=== PATIENT | female | born 1955 | race Caucasian/White ===

== ENCOUNTER 2024-02-17 02:34 | Inpatient (IN) | payer MEDICARE, OTHER, SELFPAY ==
[2024-02-16 19:24] VITALS: BP 138/79
[2024-02-16 19:51] LABS: % Basophils 0.5 % (0-2); % Eosinophils 1.3 % (0-6); % Lymphocytes 22.9 % (20.5-51.1); % Monocytes 14.4 % (1.7-9.3); % Neutrophils 59.9 % (42.2-75.2); Absolute Basophils 0.1 10^3/uL (0-0.2); Absolute Eosinophils 0.2 10^3/uL (0-0.7); Absolute Immature Granulocytes 0.1 10^3/uL (0-0.05); Absolute Lymphocytes 2.9 10^3/uL (1.2-3.4); Absolute Monocytes 1.8 10^3/uL (0.1-0.6); Absolute Neutrophils 7.5 10^3/uL (1.4-6.5); Hematocrit 31.3 % (37.0-47.0); Hemoglobin 10.7 g/dL (12.0-16.0); Mean Corp Hgb Conc. 34.2 g/dL (33.0-37.0); Mean Corpuscular Hgb 27.2 pg (27.0-31.0); Mean Corpuscular Volume 79.6 fL (81.0-99.0); Mean Platelet Volume 10.7 fL (7.4-10.4); Nucleated Red Blood Cells % 0 %; Platelet Count 225 10^3/uL (130-400); Red Blood Cell Count 3.93 10^6/uL (4.20-5.40); Red Cell Dist. Width 13.4 % (11.5-14.5); White Blood Cell Count 12.5 10^3/uL (4.8-10.8)
[2024-02-16 20:07] LABS: AST (SGOT) 20 U/L (14-36); Albumin 4.4 g/dl (3.5-5.0); Alkaline Phosphatase 85 U/L (38-126); Blood Urea Nitrogen 30 mg/dl (7-17); Calcium 8.9 mg/dl (8.4-10.2); Carbon Dioxide 31 mmol/L (22-30); Chloride 82 mmol/L (98-107); Glucose 156 mg/dl (70-99); Potassium 4.7 mmol/L (3.5-5.1); Sodium 124 mmol/L (135-145); Total Bilirubin 0.3 mg/dl (0.2-1.3); Total Protein 7.5 g/dl (6.3-8.2); eGFR 40.73
[2024-02-16 20:15] LABS: ALT (SGPT) 19 U/L (0-35)
[2024-02-16 20:17] LABS: NT-proBNP 223 pg/ml; Troponin I < 0.012 ng/ml
[2024-02-16 22:00] VITALS: BP 118/96
--- NOTE | 2024-02-16 22:54 | ED.GENMED ---
History of Present Illness
General
Chief Complaint: Swelling
Source: patient
Exam Limitations: none
Time Seen by Provider: 02/16/24 22:31
History of Present Illness
History of Present Illness:
This is a 68 year old female that comes in with c/o left sided headache pain and bilateral leg swelling. States that she hasn't sleep well in 10 days due to this left sided headache pain. States that she then had gout in the right leg and it started
to hurt. States that her PCP gave her medication and it got better but then it moved to the left leg. Know both legs are swollen. States that she had this continued headache and she has been sitting up in a chair to sleep. States that she has had
some chest pain and nausea. Denies any fever, SOB, abd pain, vomiting, diarrhea, dizziness, urinary burning.
Past History
Past History
ED Past Medical History: HTN, Hypercholesterolemia and NIDDM
ED Past Surgical History: Appendectomy
Social History
Tobacco: Smoker
Alcohol: None
Personal:
Living: with family
Review of Systems
Review of Systems
All Other Systems: ROS reviewed and negative except as documented in HPI and ROS
Constitutional: Reports chills; Denies fever
EENT: Reports no symptoms
Respiratory: Denies cough or trouble breathing
Cardiac: Reports chest pain
ABD/GI: Reports nausea; Denies abdominal pain, vomiting or diarrhea
: Reports no symptoms; Denies dysuria, frequency or urgency
Musculoskeletal: Reports edema (Bilateral leg swelling)
Skin: Reports no symptoms
Neurological: Reports headache (Left sided headache); Denies dizzy
Psychiatric: Reports no symptoms
Phy Exam
General Physical Exam
General Presentation: no apparent distress
General age: appears stated age
General Skin: warm and dry
General Habitus: elderly
General Mental: alert
General Hydration: appears well hydrated
ENT Exam
ENT Exam: TM's normal, pharynx normal and neck supple
Eye Exam
Eye Exam: EOMI
Cardiovascular Exam
Cardiovascular Exam: regular rate/rhythm, no murmur and normal peripheral pulses
Pulmonary Exam
Pulmonary Exam: lungs clear, no respiratory distress, no rales, chest non tender, no crackles, no rhonchi, no wheezing and no cough
Gastrointestinal Exam
Gastrointestinal Exam: normal bowel sounds, non tender, soft, no organomegaly, no pulsatile mass and non distended
Musculoskeletal Exam
Musculoskeletal Exam: full ROM and edema (Bilateral lower leg swelling +1 pitting edema. )
Skin Exam
Skin Exam: normal color, warm/dry, no rash and no petechia
Psychiatric Exam
Psychiatric Exam: normal mood/affect
Scores
Heart Failure Risk
Heart Failure Risk Score: Not Applicable
Course
Orders/Labs/Results
Orders:
Orders
02/16/24 19:25
Electrocardiogram (*1) Urgent
Reason for Study: Chest Pain
EKG- Treatment ONCE
02/16/24 19:44
BNP [NT-proBNP] Urgent
Complete Blood Count/With Diff Urgent
Comprehensive Metabolic Panel Urgent
Troponin I Urgent
02/16/24 22:45
CR Chest - 2 Views Urgent
Comment:
Reason For Exam: Chest pain
US Legs, Bilateral [US Periph Venous LOWER Ext Ignacio] Urgent
Comment:
Reason For Exam: Bilateral leg swelling
02/16/24 23:02
Acetaminophen [Tylenol] 1,000 mg PO NOW STA
02/16/24 23:03
CT Head W/o Iv Contrast Urgent
Comment:
Reason For Exam: Left sided headache
Ondansetron Injectable [Zofran] 4 mg IV NOW STA
02/17/24 01:13
Osmolality, Random Urine Urgent
Date Specimen was Collected: 02/17/24
Time Specimen was Collected: 01:07
Urinalysis Reflex To Culture Urgent
Date Specimen was Collected: 02/17/24
Time Specimen was Collected: :07
Urine Sodium Urgent
Date Specimen was Collected: 02/17/24
Time Specimen was Collected: :07
02/17/24 02:14
Admit/Transfer Patient As Directed
Co-Sign Provider:
Level of Care: Inpatient admission
Assign to:: Telemetry
Physician / Group: hospitalist
Diagnosis: hyponatremia
Reason for Telemetry: Subacute Heart Failure
Date to Stop Telemetry: 02/19/24
Time to Stop Telemetry: 11:00
Reason for Hospitalization: hyponatremia
Expected length of stay greater than two midnights?: Yes
ELOS- Estimated Length of Stay in days: 2
I certify the patient meets the requirements for IP care: Yes
PRN Pain Medication Management As Directed
May give lesser potent ordered pain med per pt: Yes
preference::
Protocol:: Medication orders for pain may be administered in a
manner that supports deferring to patient preference
when the pt is:
- Requesting an ordered lesser potent pain medication.
Least to most potent pain medications are defined
as: acetaminophen < NSAID < tramadol < opioids
(morphine, oxycodone, hydromorphone).
- Requesting a lesser dose of the same medication IF
ORDERED.
- Requesting a less intrusive route of administration
if both routes are prescribed by the provider (PO <
IV).
02/17/24 02:15
Code Status As Directed
Resuscitation Status: Full Code
02/17/24 02:43
Acetaminophen [Tylenol] 650 mg PO Q4HPRN PRN
Bisacodyl [Dulcolax] 10 mg RECTAL [id number] PRN
Clonidine [Catapres] 1 mg PO DAILYPRN PRN
Docusate W/Senna [Senokot-S] 1 tablet PO BIDPRN PRN
Ondansetron Injectable [Zofran] 4 mg IV Q6HPRN PRN
Polyethylene Glycol Powder [Miralax] 17 grams PO DAILYPRN PRN
02/17/24 02:43
Consult Notification Routine
Specialty to Notify: Nephrology
NEPHROLOGY CONSULT Routine
Consulting Provider: Aden Dias
Was physician already notified: No
Reason for consult: hyponatremia, Na 124.
Activity As Directed
Activity Level: With Assistance
Bedside Glucose Monitoring As Directed
Frequency: AC&HS
Vital Signs As Directed
Frequency: Per unit guidelines
DX Deep Vein Thrombosis Video Routine
02/17/24 Breakfast
1800 calorie (15 carb) Diabetic
Fluid Restriction: 1200 mL/day (40 oz)
Basic Metabolic Panel IN AM
Cortisol, Random IN AM
Magnesium IN AM
TSH Reflex To Free T4 IN AM
02/17/24 07:30
Insulin Aspart Corrective Low [Novolog Flexpen-Low Resistance] See Protocol SC AC
02/17/24 08:00
Carvedilol [Coreg] 25 mg PO BID
Heparin 5,000 units SC Q8
02/17/24 08:17
Orthostatic Vital Signs As Directed
Orthostatic VS Frequency: Now
02/17/24 18:00
Metformin Extended Release [Glucophage Xr Extended Release] 1,000 mg PO QPM
02/19/24 11:00
DC Protocol for Telemetry ONCE
Abnormal Lab Results
02/16/24
19:44
WBC 12.5 H 10^3/uL
(4.8-10.8)
RBC 3.93 L 10^6/uL
(4.20-5.40)
Hgb 10.7 L g/dL
(12.0-16.0)
Hct 31.3 L %
(37.0-47.0)
MCV 79.6 L fL
(81.0-99.0)
MPV 10.7 H fL
(7.4-10.4)
Abs Immat Gran (auto) 0.1 H 10^3/uL
(0-0.05)
Absolute Neuts (auto) 7.5 H 10^3/uL
(1.4-6.5)
Absolute Monos (auto) 1.8 H 10^3/uL
(0.1-0.6)
Immature Gran % 1.0 H %
(0-0.5)
Monocytes % 14.4 H %
(1.7-9.3)
Sodium 124 L mmol/L
(135-145)
Chloride 82 L mmol/L
(98-107)
Carbon Dioxide 31 H mmol/L
(22-30)
BUN 30 H mg/dl
(7-17)
Creatinine 1.4 H mg/dL
(0.6-1.0)
Glucose 156 H mg/dl
(70-99)
02/16/24 19:44
02/16/24 19:44
Leukocytosis, H/H slightly low, Hyponatremia, Chloride low. Carbon dioxide. Chronic renal renal insufficiency, Hyperglycemia. Troponin <0.012, Pro-BNP 223
Vital Signs
Initial and Last Documented VS:
Initial Vital Signs
Temp Pulse Resp BP Pulse Ox
98.9 F 94 16 138/79 97
02/16/24 19:24 02/16/24 19:24 02/16/24 19:24 02/16/24 19:24 02/16/24 19:24
Last Documented Vital Signs
Temp Pulse Resp BP Pulse Ox
98.2 F 87 16 127/72 91
02/16/24 23:58 02/16/24 23:58 02/16/24 22:30 02/16/24 23:58 02/17/24 01:00
MDM/Problems Addressed
Differential Diagnosis Includes:
Leg edema,
MDM/Problems Addressed:
This is a 68 year old female that comes in with c/o bilateral leg swelling, left sided headache pain. States that she has not been able to sleep for the past 10 days. State that she has this leg pain, pain in her legs.
Will get labs, CT head, Ultrasound legs,
Back into see patient. Explained that her US is negative for any blood clot and her CT of the head is normal. Spoke with Dr. Dias will give 3% and put Nephrology on Consult. Will admit. Hospitalist notified.
Chronic conditions affecting care: DM
Acute Exacerbation and/or Progression of Chronic Illness:
NA
*Radiology
Radiology exam reviewed: preliminary read by ED provider (Chest-Negative for active disease), radiology read reviewed (CT head0- No acute hemorrhage, herniation, or hydrocephalus. NO calvarial fracture. The visualized peranasal sinuses and mastoid
air cells are clear. ) and other (US- negative for DVT)
*EKG
Interpreted by ED Provider?: Yes
Heart Rate: 111
Rate: tachycardiac
Rhythm: sinus
[place]: normal axis
Interval: normal interval
QRS Pattern: normal QRS
Ischemia: no ischemia
*[employer] Interpretation
Rate: normal
Heart Rate: 88
Rhythm: sinus
*Critical Care Note
Total Time (30-74mins, 75-104mins- exclusive of procedures): Not Applicable
ED Attending Note
-
Portions of this chart may have been created with voice recognition software.� Occasional wrong word or��sound alike� substitutions may have occurred due to the inherent limitations of voice recognition software.
Discharge Plan
Departure
Patient Disposition: Admit
Date of Disposition: 02/17/24
Time of Disposition: 00:06
Admit to: Telemetry
Presentation/result/management discussed w/ accepting MD/DO: Hospitalist
Patient with high blood pressure during this ER visit?: No
Condition: Good
Covid-19: Not Applicable
Discharge Problem:
Acute hyponatremia, Bilateral edema of lower extremity, Headache
Interventions
Interventions:
*Risk Screen - Suicide Last Done: 02/16/24 19:24
*General Assessment Last Done: 02/16/24 19:24
*Neglect/Abuse Screening Last Done: 02/16/24 19:24
ED- Fall Risk Assessment Last Done: 02/16/24 21:49
*ED COVID-19 Vaccine History Last Done: 02/16/24 19:24
ED- Cardiac Assessment Last Done: 02/16/24 21:49
ED- Pulmonary Assessment Last Done: 02/16/24 21:49
ED-Skin Assessment Last Done: 02/16/24 21:49
[2024-02-16 23:55] VITALS: BP 127/72
[2024-02-16 23:58] VITALS: BP 127/72
[2024-02-17] VITALS (9 sets, daily range): BP systolic 98–131; BP diastolic 49–79; PULSE 81–85; BMI 40.2
[2024-02-17] MEDS: TYLENOL 1000 MG PO (00:04)
[2024-02-17] MEDS: ZOFRAN 4 MG IV (00:05)
[2024-02-17 01:24] LABS: Urine Albumin Negative (Neg - Trace); Urine Bilirubin Negative (Negative); Urine Character Clear (Clear); Urine Color Yellow; Urine Glucose Negative (Negative); Urine Ketone Negative (Negative); Urine Leukocyte Negative (Negative); Urine Nitrite Negative (Negative); Urine Occult Blood Negative (Negative); Urine Urobilinogen Negative (Neg - 1+)
--- NOTE | 2024-02-17 01:39 | HPS.HSE ---
Family Physician
-
Family Physician: Sebastien Gonzalez
Chief Complaint
-
Leg swelling
History of Present Illness
This is a 68-year-old female was past medical history significant for gout, hypertension and a headache presents to the emergency department with the lower extremity swelling and was found to be hyponatremic.
The patient reported that she started having headache symptoms about 8 days ago. Right before Michael she reported a left-sided sinus congestion and a headache. She reported that she has had prior episode of before and she was thought to have
sinusitis and treated with an antibiotic which resulted in the rash. This time there is some thought that she may be having a trigeminal or myofascial pain headache. Patient reported the headache is present preventing her from sleeping so she
started taking carbamazepine prescribed by physician. She also had recent episode of a gout flare. She was started on colchicine with transient/fluctuating kidney function. After resolution of the ankle pain she is she now had swelling. Due to
the swelling, mild elevated potassium the patient was started on Lasix. Hydrochlorothiazide and lisinopril were held. She otherwise denies any fevers or chills. She denies any prior history of hyponatremia. She denies any significant changes in
p.o. intake. She denies dizziness or lightheadedness.
In the emergency department she was afebrile, blood pressure was 117/70 with a pulse of 82. ECG shows sinus tachycardia at 11 with a few PVCs. CT of the head was negative for any acute intracranial process. She had a mild leukocytosis of 12.5
with stable hemoglobin and platelet counts. Sodium was 124, potassium 4.7, bicarb 31, BUN 30 and creatinine 1.4. Baseline creatinine was around 1 the beginning of the year and as high as 1.9 last month. Glucose was 156. Troponin was negative.
BNP was negative. She had a ultrasound of lower extremities which are pending at this time.
Medical History
Past Medical History
Past Medical History: Reports HTN
Additional Past Medical History:
Gout
Past Surgical History: Reports Other
Social History
Tobacco: Non-smoker
Alcohol: None
Drug: None
Living: With Family
Employment: Retired
Family History
Family History: Not pertinent
Allergies / Home Medications
Allergies reflects when Allergies were last updated in [employer]
Home Medications with original date entered in [employer]
Allergy/Medication List:
Allergies
Allergy/AdvReac Type Severity Reaction Status Date / Time
doxycycline Allergy Rash Verified 02/16/24 23:57
Penicillins Allergy Unknown Verified 02/16/24 19:30
Home Medications
carbamazepine 200 mg tablet,extended release,12 hr 200 mg PO HS 02/16/24
carvedilol 25 mg tablet 25 mg PO BID 02/16/24
clonidine HCl 0.1 mg tablet 1 mg PO DAILYPRN PRN BP<155/90 02/16/24
colchicine 0.6 mg tablet 0.6 mg PO TIDPRN PRN gout 02/16/24
doxazosin 1 mg tablet 1 mg PO QPM 02/16/24
furosemide 40 mg tablet 40 mg PO DAILY 02/16/24
ibuprofen 600 mg tablet 600 mg PO TID 02/16/24
lisinopril 20 mg-hydrochlorothiazide 25 mg tablet 1 tab PO DAILY 02/16/24
metformin 500 mg tablet,extended release 24 hr 1,000 mg PO QPM 02/16/24
potassium chloride 20 mEq tablet,extended release 20 meq PO DAILY 02/16/24
Review of Systems
-
Constitutional: Reports Sleep Disturbance
Respiratory: Reports No Symptoms
Cardiac: Reports No Symptoms
Abdomen/GI: Reports No Symptoms
: Reports No Symptoms
Musculoskeletal: Reports Edema
Skin: Reports No Symptoms
Neurological: Reports Headache and Numbness
Endocrine: Reports No Symptoms
Hematologic/Lymphatic: Reports No Symptoms
Psych: Reports No Symptoms
Physical Exam
Vital Signs
Vital Signs
Temp Pulse Resp BP Pulse Ox
98.2 F 87 16 127/72 94
02/16/24 23:58 02/16/24 23:58 02/16/24 22:30 02/16/24 23:58 02/16/24 23:58
Physical Exam
General: Well Developed, Well Nourished and No Apparent Distress
HEENT: NormoCephalic, Anicteric, Moist mucous membranes, Atraumatic and PERRLA
Respiratory: Clear
Cardiac: S1/S2 and Regular Rhythm
GI: Soft, Non Tender, Non Distended and Normal Bowel Sounds
Rectal: Deferred by Provider
Genito-urinary: Deferred by me
Musculoskeletal: No Clubbing, No Cyanosis, Edema, Left Lower Extremity (1+ ankle) and Edema, Right Lower Extremity (1+ ankle)
Skin: Warm
Neuro: AO x 3
Hematologic/Lymphatic: No Lymphadenopathy
Psych: Calm
Laboratory Results
-
02/16/24 19:44
02/16/24 19:44
Laboratory Results
Total Bilirubin 0.3 mg/dl (0.2-1.3) 02/16/24 19:44
AST 20 U/L (14-36) 02/16/24 19:44
ALT 19 U/L (0-35) 02/16/24 19:44
Alkaline Phosphatase 85 U/L (38-126) 02/16/24 19:44
Troponin I < 0.012 ng/ml 02/16/24 19:44
Data Reviewed
-
CT Scan: Report Reviewed by me
Ultrasound: Report Reviewed by me
Medical Tests (Nuc Med, Echo, EKG etc): Image Personally Visualized and interpreted
Lab Data: Labs Reviewed by me
Old Records: Reviewed
Impression/Plan
-
IMPRESSION:
Patient with h/o HTN and CKD and gout presents to ED ostensibly for headache and lower extremity swelling and found to have severe hyponatremia. She appears asymptomatic from that.
PLAN:
1. Hyponatremia - Euvolemic to hypervolemic hyponatremia Urine Na and Osm are pending. Suspect SIADH and possibly diuretic induced as well. Recent initiation of carbamezabine Feb 05, by feb 09 sodium was 131 now 124. She also has been taking
furosemide for ankle edema after her gout exacerbation.
- admit to telemetry
- hold carbamazepine and lasix for now
- start hypertonic saline 3% at 20ml/hr
- check tsh and am cortisol
- check orthostatics in am
- bnp normal, uriel LE u/s negative, check echo and lfts
- nephrology consult
2. CKD - Recent rise in creatinine to 1.9. Lisinopril/hctz held at that time. Cr now 1.4.
- continue to hold lisinopril for now
- hold colchicine and nsaids
HTN
- continue doxazosin and carvedilol
DM II
- metformin 1g q pm for now
DVT PPX - heparin sq
Code status - full code
[2024-02-17 01:44] LABS: Urine Sodium 55 mmol/L (30-90)
[2024-02-17] MEDS: SODIUM CHLORIDE 3% 250 IV ×2 (04:45→21:17)
[2024-02-17 07:12] LABS: Blood Urea Nitrogen 30 mg/dl (7-17); Calcium 8.3 mg/dl (8.4-10.2); Carbon Dioxide 30 mmol/L (22-30); Chloride 84 mmol/L (98-107); Glucose 121 mg/dl (70-99); Magnesium 1.7 mg/dl (1.6-2.3); Potassium 4.9 mmol/L (3.5-5.1); Sodium 124 mmol/L (135-145)
[2024-02-17 07:36] LABS: Cortisol, Random 6.3 ug/dl; TSH Reflex To Free T4 1.09 uIU/ml (0.47-4.68)
[2024-02-17 08:11] LABS: Osmolality Urine 276 mOsm/kg (300-900)
[2024-02-17] MEDS: TYLENOL 650 MG PO ×2 (08:30→21:25)
[2024-02-17] MEDS: HEPARIN 5000 UNITS SC ×3 (09:13→23:10)
[2024-02-17] MEDS: COREG 25 MG PO ×2 (09:15→19:32)
[2024-02-17 09:23] LABS: Glucose - Point of Care 158 mg/dl (70-99)
--- NOTE | 2024-02-17 09:33 | EDRN ---
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
--- NOTE | 2024-02-17 10:00 | EDRN ---
Pt medicated w/ tylenol 650 mg for L face pain 7/10 and pain now 2/10.
[2024-02-17 10:02] LABS: Iron 80 ug/dl (37-170)
[2024-02-17 10:11] LABS: Percent Saturation 26 % (20-50); Total Iron Binding Capacity 302 ug/dl (265-497)
[2024-02-17] MEDS: NOVOLOG FLEXPEN-LOW RESISTANCE SC ×2 (10:45→18:35)
--- NOTE | 2024-02-17 10:45 | W.CON.NEPH ---
Consultation
-
Date/Time Consultation Requested: 02/17/24 0243
Date/Time Consultation Performed: 02/17/24 1100
Requesting Provider: Srinivas Ahmadi MD
Performing Provider: Jewels De Luna
Reason for Consultation: Hyponatremia, KALLIE
Medical History
-
Chief Complaint: leg edema
History of Present Illness:
68-year-old female was past medical history significant for gout when necessary colchicine, hypertension Carvedilol, hydrochlorothiazide, lisinopril, when necessary clonidine and a headache presents to the emergency department with the lower
extremity swelling and was found to be hyponatremic 124.
The patient reported that she started having headache symptoms about 8 days ago. Right before Michael she reported a left-sided sinus congestion and a headache. She reported that she has had prior episode of before and she was thought to have
sinusitis and treated with an antibiotic which resulted in the rash. This time there is some thought that she may be having a trigeminal or myofascial pain headache. Patient reported the headache is present preventing her from sleeping so she
started taking carbamazepine prescribed by physician. She also had recent episode of a gout flare On the same time. She was started on colchicine. After resolution of the ankle pain she is she now had Leg swelling. Due to the swelling, mild
elevated potassium the patient was started on Lasix off Hydrochlorothiazide and lisinopril. Reportedly her baseline creatinine is around 1.3 since June 2023, on 02/10/24 creatinine was at 1.9, uric acid was 11.2. She otherwise denies any fevers or
chills. She denies any prior history of hyponatremia. She denies any significant changes in p.o. intake. She denies dizziness or lightheadedness.
labs in the ER showed Sodium 124, potassium 4.7, bicarb 31, BUN 30 and creatinine 1.4. BNP was negative. She had a ultrasound of lower extremities negative for DVT. She started on 3% saline overnight and repeat labs this morning still at 124,
nephrology is consulted to evaluate further.
Past Medical History
HTN
NIDM
Gout
CKD
HLD
PAD-carotid art disease
Social History
Tobacco: Non-Smoker
Alcohol: None
Drug: None
Living: With Family
Family History
Family History: Not Pertinent
Allergies / Home Medications
Allergy/AdvReac Type Severity Reaction Status Date / Time
doxycycline Allergy Rash Verified 02/16/24 23:57
Penicillins Allergy Unknown Verified 02/16/24 19:30
�Medication �Instructions �Recorded �Confirmed �Type
carbamazepine 200 mg 200 mg PO HS 02/16/24 02/16/24 History
tablet,extended release,12 hr
carvedilol 25 mg tablet 25 mg PO BID 02/16/24 02/16/24 History
clonidine HCl 0.1 mg tablet 1 mg PO DAILYPRN PRN BP<155/90 02/16/24 02/16/24 History
colchicine 0.6 mg tablet 0.6 mg PO TIDPRN PRN gout 02/16/24 02/16/24 History
doxazosin 1 mg tablet 1 mg PO QPM 02/16/24 02/16/24 History
furosemide 40 mg tablet 40 mg PO DAILY 02/16/24 02/16/24 History
ibuprofen 600 mg tablet 600 mg PO TID 02/16/24 02/16/24 History
lisinopril 20 1 tab PO DAILY 02/16/24 02/16/24 History
mg-hydrochlorothiazide 25 mg tablet
metformin 500 mg tablet,extended 1,000 mg PO QPM 02/16/24 02/16/24 History
release 24 hr
potassium chloride 20 mEq 20 meq PO DAILY 02/16/24 02/16/24 History
tablet,extended release
Review of Systems
-
All complete 12 point review of system have been inquired and found negative other than stated in HPI
All other systems: Negative unless noted
Physical Exam
Vital Signs
Vital Signs
Temp Pulse Resp BP Pulse Ox
98.3 F 84 16 121/63 88
02/17/24 07:53 02/17/24 09:30 02/17/24 09:30 02/17/24 09:15 02/17/24 09:30
Lab Results
WBC 12.5 10^3/uL (4.8-10.8) H 02/16/24 19:44
RBC 3.93 10^6/uL (4.20-5.40) L 02/16/24 19:44
Hgb 10.7 g/dL (12.0-16.0) L 02/16/24 19:44
Hct 31.3 % (37.0-47.0) L 02/16/24 19:44
Plt Count 225 10^3/uL (130-400) 02/16/24 19:44
Sodium 124 mmol/L (135-145) L 02/17/24 06:28
Potassium 4.9 mmol/L (3.5-5.1) 02/17/24 06:28
Chloride 84 mmol/L (98-107) L 02/17/24 06:28
Carbon Dioxide 30 mmol/L (22-30) 02/17/24 06:28
BUN 30 mg/dl (7-17) H 02/17/24 06:28
Creatinine 1.6 mg/dL (0.6-1.0) H 02/17/24 06:28
eGFR 34.70 02/17/24 06:28
Glucose 121 mg/dl (70-99) H 02/17/24 06:28
Calcium 8.3 mg/dl (8.4-10.2) L 02/17/24 06:28
Sjn-T-Zoyvzlhxzuc Pept 223 pg/ml 02/16/24 19:44
Albumin 4.4 g/dl (3.5-5.0) 02/16/24 19:44
CXR:
IMPRESSION:
No acute cardiopulmonary abnormality.
Physical Exam
General: Awake, Alert, Oriented, AOx3, No Distress and Nontoxic
HEENT: EOMI, Anicteric, Conjunctivae Clear and Facial Symmetry
Respiratory: Clear, Normal Excursion and Nonlabored Respirations
Cardiac: S1/S2 and Regular Rate/Rhythm
Abdomen: Soft, Nontender and Nondistended
Musculoskeletal: No Cyanosis and Edema (1+)
Neuro: Nonfocal/Grossly Intact
Psych: Mood/afflect pleasant, Insight/judgement good and Appropriate
Data Reviewed
-
Labs: Labs Reviewed by me and Discussed with Patient
Assessment/Plan
-
IMP:
Hyponatremia
KALLIE with CKD -baseline 1.3 Recent rise in creatinine to 1.9.
HTN
DM II
Gout
HLD
Plan:
A/w leg edema, BNP low and no DVT , recent gout
sodium no change with 3%, U osmo 276, U na 55-was on HCTZ, recent initiation of carbamazepine, +/- NSAIDs
TSH, cortisol were ok
follow repeat labs, if still low try samsca
likely need lasix to maintain and FR
no HCTZ in future
CKD-baseline cr 1.3, currently at 1.6
UA bland, check renal US to complete w/u
no w/nu for CKD in the past per pt
BP stable
Gout-may need Allopurinol once stabilized
d/w pt
[2024-02-17 10:56] LABS: Vitamin B12 255 pg/ml (239-931)
--- NOTE | 2024-02-17 11:11 | EDRN ---
Dr. Valle TT'd that pt stated to this RN that she will not be taking any insulin.
[2024-02-17 11:50] LABS: Erythrocyte Sed Rate 44 mm/hour (0-20)
--- NOTE | 2024-02-17 12:00 | EDRN ---
Dr. Valle in to see pt. Pt ordered lunch tray.
--- NOTE | 2024-02-17 12:30 | EDRN ---
Report called to Sly JEFFERSON in 1 Acute for bed 1143 at this time.
--- NOTE | 2024-02-17 13:34 | EDRN ---
Pt went to room 1143 w/ her diet tray.
[2024-02-17 14:00] LABS: Glucose - Point of Care 159 mg/dl (70-99)
[2024-02-17] MEDS: NOVOLOG FLEXPEN-LOW RESISTANCE 1 UNITS SC (14:03)
[2024-02-17] MEDS: MAGNESIUM OXIDE 500 MG PO (14:05)
[2024-02-17] MEDS: VITAMIN C 500 MG PO (14:05)
--- NOTE | 2024-02-17 14:07 | W.PN.HOSP.TC ---
Today's Communication/Plan
-
ECHO
Correct sodium
Assessment / Plan
Assessment / Plan
68-year-old female with leg swelling.
Patient is a vague historian. Looks like she had lower extremity edema for the past 3 weeks. She also developed a gout attack for which she was treated with colchicine which made her creatinine go up and stopped. She has also been taking
ibuprofen regularly as outpatient for the pain. She also had left-sided headache for which she was prescribed carbamazepine sounds like got her headache better but she did not take it last night. She thinks she has chronic kidney disease
Ultrasound-no DVT
Chest s-asm-[id number]
CVS: S1-S2 normal
Chest: CTA B/L
Abdomen: Soft, NT / Bowel sounds present
Extremities: B/L edema
[employer]: Non focal exam
# Hyponatremia
Possible medication induced. Hold carbamazepine
Started on 3% saline
Follow BMP
Normal TSH and cortisol
# Lower extremity edema-check echo
No DVT on ultrasound
# Recent headaches for which she was started on carbamazepine. Hold now because of the sodium
# Kidney injury-likely has CKD creatinine was 1.311 2724. 1.98 on 02/15/2024
Hold lisinopril hydrochlorothiazide, colchicine and NSAIDs
Urine analysis without any albuminuria
Check bladder scan rule out retention
Nephrology has been consulted
She has been taking ibuprofen regularly. Advised to stop.
Follow creatinine
# Hypertension-continue doxazosin 1 mg every afternoon and carvedilol 25 Mg twice daily.
She was also on clonidine as needed as outpatient
Hold lisinopril hydrochlorothiazide
# Ghpqllie-Gqcm-Jsigo and sliding scale coverage. Continue metformin. If creatinine rises we may need to stop.
# Gout. Recent uric acid level was 11.2
# Anemia-normal iron studies. Replace low normal B12
# Vitamin D deficiency-replace
# History of scurvy-therefore on vitamin C maintenance as outpatient
# DVT prophylaxis-subcutaneous heparin
# Full code
Discussed with patient's daughter from Son's cell phone at bed side.
Discussed with son at bedside
Old labs with pt reviewed.
Anticipated Discharge: 24 - 48 hours
Subjective/Interval History
-
Date of Service: February 17, 2024
Objective Data
-
Labs:
Laboratory Results
02/17/24
06:28
Sodium 124 L
Potassium 4.9
Chloride 84 L
Carbon Dioxide 30
BUN 30 H
Creatinine 1.6 H
Glucose 121 H
Calcium 8.3 L
Vital Signs:
Vital Signs
Temp Pulse Resp BP Pulse Ox
98.3 F 79 20 103/58 94
02/17/24 07:53 02/17/24 13:15 02/17/24 13:15 02/17/24 12:02 02/17/24 13:15
[2024-02-17] MEDS: DRISDOL (VITAMIN D2) 50000 UNITS PO (14:34)
[2024-02-17 16:34] LABS: Sodium 126 mmol/L (135-145)
[2024-02-17] MEDS: GLUCOPHAGE XR EXTENDED RELEASE 1000 MG PO (18:35)
[2024-02-17 18:46] LABS: Glucose - Point of Care 142 mg/dl (70-99)
[2024-02-17 21:41] LABS: Glucose - Point of Care 128 mg/dl (70-99)
[2024-02-18] VITALS (7 sets, daily range): BP systolic 96–141; BP diastolic 53–72; PULSE 81; O2SAT 96; BMI 39.9
[2024-02-18 07:50] LABS: Blood Urea Nitrogen 27 mg/dl (7-17); Carbon Dioxide 32 mmol/L (22-30); Chloride 91 mmol/L (98-107); Estimated Creatinine Clearance 45 ml/min; Glucose 108 mg/dl (70-99); Potassium 4.8 mmol/L (3.5-5.1); Sodium 129 mmol/L (135-145); eGFR 44.51
[2024-02-18] MEDS: VITAMIN C 500 MG PO (09:35)
[2024-02-18] MEDS: MAGNESIUM OXIDE PO ×2 (09:35→10:34)
[2024-02-18] MEDS: VITAMIN D3 (cholecalciferol) 50 MCG PO (09:35)
[2024-02-18] MEDS: COREG 25 MG PO ×2 (09:35→20:30)
[2024-02-18] MEDS: NOVOLOG FLEXPEN-LOW RESISTANCE SC ×2 (09:40→17:10)
[2024-02-18] MEDS: HEPARIN 5000 UNITS SC ×3 (09:40→23:03)
[2024-02-18 09:50] LABS: Glucose - Point of Care 138 mg/dl (70-99)
--- NOTE | 2024-02-18 11:55 | W.PN.NEPH.PH ---
Today's Communication / Plan
-
FR, lasix 20mg daily
Assessment/Plan
-
IMP:
Hyponatremia
KALLIE with CKD -baseline 1.3 Recent rise in creatinine to 1.9.
HTN
DM II
Gout
HLD
Plan:
A/w leg edema, BNP low and no DVT , recent gout
sodium improved to 129 s/p 3%,
U osmo 276, U na 55-was on HCTZ, recent initiation of carbamazepine, +/- NSAIDs
TSH, cortisol were ok
given edema will start lasix and maintain FR, echo normal EF, mild LVH, mild TR
no HCTZ in future
monitor mild met alkalosis
CKD-currently at baseline cr 1.3,
UA bland, MED changes on renal US, incidental note of fatty liver
BP stable
Gout-may need Allopurinol once stabilized
d/w pt
-
-
Date of Service: February 18, 2024
CC / HPI / ROS
-
Chief Complaint:
KALLIE, hypoantremia
History of Present Illness:
sodium better at 129, cr down to 1.3
k normal
BP stable
Review of Systems:
no cp or sob
c/o LE edema
Labs
-
Labs:
WBC 12.5 10^3/uL (4.8-10.8) H 02/16/24 19:44
RBC 3.93 10^6/uL (4.20-5.40) L 02/16/24 19:44
Hgb 10.7 g/dL (12.0-16.0) L 02/16/24 19:44
Hct 31.3 % (37.0-47.0) L 02/16/24 19:44
Plt Count 225 10^3/uL (130-400) 02/16/24 19:44
Sodium 129 mmol/L (135-145) L 02/18/24 06:46
Potassium 4.8 mmol/L (3.5-5.1) 02/18/24 06:46
Chloride 91 mmol/L (98-107) L 02/18/24 06:46
Carbon Dioxide 32 mmol/L (22-30) H 02/18/24 06:46
BUN 27 mg/dl (7-17) H 02/18/24 06:46
Creatinine 1.3 mg/dL (0.6-1.0) H 02/18/24 06:46
eGFR 44.51 02/18/24 06:46
Glucose 108 mg/dl (70-99) H 02/18/24 06:46
Calcium 8.0 mg/dl (8.4-10.2) L 02/18/24 06:46
Ups-R-Bvseaehotfu Pept 223 pg/ml 02/16/24 19:44
Albumin 4.4 g/dl (3.5-5.0) 02/16/24 19:44
Physical Exam
-
Vital Signs:
Vital Signs
Temp Pulse Resp BP Pulse Ox
97.7 F 79 18 123/68 98
02/18/24 07:00 02/18/24 07:00 02/18/24 07:00 02/18/24 07:00 02/18/24 07:00
Cardiovascular:: Regular rate and rhythm
Respiratory:: Bilateral: CTA
Lung Excursion:: Normal
Abdomen:: Nontender and Soft
Extremity Edema:: +1: Bilateral:
Galindo Catheter: No
--- NOTE | 2024-02-18 12:21 | W.PN.HOSP.TC ---
Today's Communication/Plan
-
Sodium slowly coming up
Hold further Lasix as blood pressure is low
Check CT abdomen pelvis with p.o. contrast
Benadryl ordered as patient stated that she had a stress test and had some allergic reaction (which would not be Omnipaque)
Assessment / Plan
Assessment / Plan
68-year-old female with leg swelling.
Patient is a vague historian. Looks like she had lower extremity edema for the past 3 weeks. She also developed a gout attack for which she was treated with colchicine which made her creatinine go up and stopped. She has also been taking
ibuprofen regularly as outpatient for the pain. She also had left-sided headache for which she was prescribed carbamazepine sounds like got her headache better but she did not take it last night. She thinks she has chronic kidney disease
Ultrasound-no DVT
Chest [id number]-[id number]
CVS: S1-S2 normal
Chest: CTA B/L
Abdomen: Soft, NT / Bowel sounds present
Extremities: B/L edema-slightly better
RN ADVICE: Non focal exam
# Hyponatremia
Possible medication induced. Hold carbamazepine
Started on 3% saline
hold Lasix as blood pressure is on the low side and she is feeling dizzy
Follow BMP-sodium better
Normal TSH and cortisol
Echo-normal LV size. Normal systolic function. EF 55 to 60%. Mild concentric LVH. Mild TR.
# Lower extremity edema-
Echo with normal EF
No DVT on ultrasound
Check CAT scan of abdomen and pelvis with p.o. contrast only
# Recent headaches for which she was started on carbamazepine. Hold now because of the sodium. No reported headaches
# Left carotid stenosis 50 to 69% discussed with patient, her sister and son. Outpatient vascular evaluation discussed
# Kidney injury-likely has CKD creatinine was 1.311 2724. 1.98 on 02/15/2024
Hold lisinopril hydrochlorothiazide, colchicine and NSAIDs
Urine analysis without any albuminuria
No retention on bladder scan
Nephrology has been consulted
She has been taking ibuprofen regularly. Advised to stop.
Follow creatinine-better
# Hypertension-continue carvedilol 25 Mg twice daily.
She was also on clonidine as needed as outpatient
Hold lisinopril hydrochlorothiazide
Hold Doxazosin
BP on the low side
# Ntrkgsyl-Blkk-Yzdwf and sliding scale coverage. Continue metformin. If creatinine rises we may need to stop.
# Gout. Recent uric acid level was 11.2
# Anemia-normal iron studies. Replace low normal B12
# Vitamin D deficiency-replace
# History of scurvy-therefore on vitamin C maintenance as outpatient
# DVT prophylaxis-subcutaneous heparin
# Full code
I spoke to patient's sister yesterday and not her daughter. Spoke to patient's sister who is an supervisor pyrotechnic loading again today from patient's son's cell phone
Discussed with son at bedside
Discussed with nursing
Anticipated Discharge: Within 24 hours
Subjective/Interval History
-
Date of Service: February 18, 2024
Objective Data
-
Labs:
Laboratory Results
02/18/24
06:46
Sodium 129 L
Potassium 4.8
Chloride 91 L
Carbon Dioxide 32 H
BUN 27 H
Creatinine 1.3 H
Glucose 108 H
Calcium 8.0 L
Vital Signs:
Vital Signs
Temp Pulse Resp BP Pulse Ox
97.7 F 79 18 123/68 98
02/18/24 07:00 02/18/24 07:00 02/18/24 07:00 02/18/24 07:00 02/18/24 07:00
I&O
02/17/24 02/18/24 02/19/24
06:59 06:59 06:59
Intake Total 640 / 640
Balance 640 / 640
[2024-02-18 12:38] LABS: Glucose - Point of Care 168 mg/dl (70-99)
[2024-02-18] MEDS: OMNIPAQUE 50 ML PO (12:47)
[2024-02-18] MEDS: BENADRYL 50 MG PO (12:48)
[2024-02-18] MEDS: NOVOLOG FLEXPEN-LOW RESISTANCE 1 UNITS SC (12:49)
[2024-02-18] MEDS: LASIX PO (12:52)
[2024-02-18 17:05] LABS: Glucose - Point of Care 126 mg/dl (70-99)
[2024-02-18] MEDS: GLUCOPHAGE XR EXTENDED RELEASE 1000 MG PO (17:10)
[2024-02-18 21:25] LABS: Glucose - Point of Care 144 mg/dl (70-99)
[2024-02-19 03:00] VITALS: BP 147/74
[2024-02-19] MEDS: TYLENOL 650 MG PO (05:32)
[2024-02-19 06:41] LABS: Hematocrit 27.4 % (37.0-47.0); Mean Corp Hgb Conc. 32.8 g/dL (33.0-37.0); Mean Corpuscular Hgb 27.2 pg (27.0-31.0); Mean Corpuscular Volume 82.8 fL (81.0-99.0); Mean Platelet Volume 10.7 fL (7.4-10.4); Platelet Count 191 10^3/uL (130-400); Red Blood Cell Count 3.31 10^6/uL (4.20-5.40); Red Cell Dist. Width 13.4 % (11.5-14.5)
[2024-02-19 07:00] VITALS: BP 131/73
[2024-02-19 07:13] LABS: Blood Urea Nitrogen 21 mg/dl (7-17); Calcium 8.5 mg/dl (8.4-10.2); Carbon Dioxide 28 mmol/L (22-30); Chloride 91 mmol/L (98-107); Estimated Creatinine Clearance 49 ml/min; Glucose 119 mg/dl (70-99); Potassium 4.8 mmol/L (3.5-5.1); Sodium 129 mmol/L (135-145)
[2024-02-19 08:38] LABS: Glucose - Point of Care 129 mg/dl (70-99)
[2024-02-19] MEDS: NOVOLOG FLEXPEN-LOW RESISTANCE SC ×2 (09:11→13:45)
--- NOTE | 2024-02-19 09:49 | CM ---
Addendum entered by Rowan Rouse 02/19/24 11:33:
Mayela's son will provide transport home at discharge.
Original Note:
CM met with Mayela to provide AD and complete IA. Advance Directive reviewed and questions answered.
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 Home is 2 stories with 1 entry step. She has been independent with ambulation and ADLs; drives in the community. No DME in the home.
Anticipate discharge to home with no identified needs.
[2024-02-19] MEDS: MAGNESIUM OXIDE 500 MG PO (10:05)
[2024-02-19] MEDS: HEPARIN SC ×2 (10:05→10:15)
[2024-02-19] MEDS: VITAMIN D3 (cholecalciferol) 50 MCG PO (10:05)
[2024-02-19] MEDS: LASIX 20 MG PO (10:05)
[2024-02-19] MEDS: VITAMIN C 500 MG PO (10:05)
[2024-02-19] MEDS: COREG 25 MG PO (10:05)
[2024-02-19 10:45] VITALS: BMI 40.1
--- NOTE | 2024-02-19 11:23 | W.PN.HOSP.TC ---
Addendum entered and electronically signed by Fabricio Valle MD 02/19/24 13:32:
Family states patient does not have any allergic reaction to penicillin therefore I will start Ceftin and first dose here
Addendum entered and electronically signed by Fabricio Valle MD 02/19/24 13:05:
Spoke to PCP and updated regarding hospital course and med changes
PCP only has the patient taking Zithromax in the past and recent doxycycline
Original Note:
Today's Communication/Plan
-
Left a message for PCP to prescribe antibiotic
Discharge soon as information available
Assessment / Plan
Assessment / Plan
68-year-old female with leg swelling.
Patient is a vague historian. Looks like she had lower extremity edema for the past 3 weeks. She also developed a gout attack for which she was treated with colchicine which made her creatinine go up and stopped. She has also been taking
ibuprofen regularly as outpatient for the pain. She also had left-sided headache for which she was prescribed carbamazepine sounds like got her headache better but she did not take it last night. She thinks she has chronic kidney disease
Ultrasound-no DVT
Chest [id number]
CT of the abdomen and pelvis with p.o. contrast-mild proctocolitis in the sigmoid colon and rectum, severe diverticulosis in the descending and sigmoid colon, moderate c chronic bilateral renal disease, severe calcific atherosclerotic plaque in the
abdominal aorta, mild hepatomegaly and diffuse hepatic steatosis, grade 1 anterolisthesis L4-L5 and L5-S1
CVS: S1-S2 normal
Chest: CTA B/L
Abdomen: Soft, NT , rectal heme-negative brown stools bowel sounds present
Extremities: B/L edema-Much better
ENGRAVER WOOD: Non focal exam
# Hyponatremia
Possible medication induced. Hold carbamazepine
Got 3% saline
Continue 20 mg of Lasix
Follow BMP-sodium same because she did not receive Lasix yesterday
Normal TSH and cortisol
Echo-normal LV size. Normal systolic function. EF 55 to 60%. Mild concentric LVH. Mild TR.
# Lower extremity edema-
Echo with normal EF
No DVT on ultrasound
CT scan of the abdomen and pelvis without any mass or tumor
# Recent headaches for which she was started on carbamazepine. Hold now because of the sodium. She has 1 tooth on the left side which has caries and infection needs to be taken care of. I also discussed with her regarding starting gabapentin for
the pain she wants to have a prescription but talk to her primary before she would start.
# Left carotid stenosis 50 to 69% discussed with patient, her sister and son. Outpatient vascular evaluation discussed
# Kidney injury-likely has CKD creatinine was 1.311 2724. 1.98 on 02/15/2024
Hold lisinopril hydrochlorothiazide, colchicine and NSAIDs
Urine analysis without any albuminuria
No retention on bladder scan
Nephrology has been consulted
She has been taking ibuprofen regularly. Advised to stop.
Follow creatinine-better
# Hypertension-continue carvedilol 25 Mg twice daily.
She was also on clonidine as needed as outpatient
Hold lisinopril hydrochlorothiazide
Hold Doxazosin
Continue Lasix
# No symptoms of proctocolitis- no pain, no blood in the stools. Rectal exam unremarkable
# Nddqqlas-Acjb-Kyvce and sliding scale coverage. Continue metformin. If creatinine rises we may need to stop.
# Gout. Recent uric acid level was 11.2. Outpatient follow-up with PCP
# Anemia-normal iron studies. Replace low normal B12
# Vitamin D deficiency-replace
# History of scurvy-therefore on vitamin C maintenance as outpatient
# Grade 1 anterolisthesis L4-L5 and L5 on S1
# Hepatic steatosis
# Diverticulosis
# Atherosclerosis-will advise patient to start statin and aspirin
# DVT prophylaxis-subcutaneous heparin
# Full code
Patient's sister and son were both updated yesterday and the day before
Discussed with case management at bedside
Discussed with nursing at bedside
Called [facility] to see if patient has had any other antibiotics. They do not have any information other than from recent doxycycline which patient refuses to take. She also has listed allergy to penicillin which is unknown reaction. I have
requested her to talk to her sister, son or PCP and let me know which antibiotic she can take or she has taken in the past which we can prescribe.
Called patient's son who deferred me to call patient's sister who I called [phone] and updated on CAT scan findings, plan of care
Sister stated that some of the allergic reaction she is saying is diarrhea from antibiotics. She suggested that I defer antibiotic prescription to PCP if she does not give us information, since he knows her better
Also discussed about starting aspirin and statin, gabapentin
Called PCP [phone] Mariano for call back.
Total discharge coordination time over 45 minutes
Anticipated Discharge: Today
Subjective/Interval History
-
Date of Service: February 19, 2024
Objective Data
-
Labs:
Laboratory Results
02/19/24
06:12
WBC 8.0
Hgb 9.0 L
Hct 27.4 L
Plt Count 191
Sodium 129 L
Potassium 4.8
Chloride 91 L
Carbon Dioxide 28
BUN 21 H
Creatinine 1.2 H
Glucose 119 H
Calcium 8.5
Vital Signs:
Vital Signs
Temp Pulse Resp BP Pulse Ox
98.1 F 77 18 131/73 96
02/19/24 07:00 02/19/24 07:00 02/19/24 07:00 02/19/24 07:00 02/19/24 07:00
I&O
02/18/24 02/19/24 02/20/24
06:59 06:59 06:59
Intake Total 640 / 640 480 / 480
Balance 640 / 640 480 / 480
[2024-02-19 13:06] LABS: Glucose - Point of Care 126 mg/dl (70-99)
[2024-02-19 13:27] LABS: HDL Cholesterol 31 mg/dl; LDL Cholesterol, Calculated 132 mg/dl; Total Cholesterol 228 mg/dl (50-199); Triglyceride 328 mg/dl (10-149); Very Low Density Lipoprotein 65 mg/dl (0-30)
--- NOTE | 2024-02-19 13:30 | W.PN.NEPH.PH ---
Today's Communication / Plan
-
ok for d/c
Assessment/Plan
-
IMP:
Hyponatremia
KALLIE with CKD -baseline 1.3 Recent rise in creatinine to 1.9.
HTN
DM II
Gout
HLD
Plan:
A/w leg edema, BNP low and no DVT , recent gout
sodium improved to 130
U osmo 276, U na 55-was on HCTZ, recent initiation of carbamazepine, +/- NSAIDs
TSH, cortisol were ok
given edema will start lasix and maintain FR, echo normal EF, mild LVH, mild TR
no HCTZ in future
monitor mild met alkalosis
CKD-currently at baseline cr 1.2,
UA bland, MRD changes on renal US, incidental note of fatty liver
BP stable
Gout-may need Allopurinol once stabilized as out pt
d/w pt
ok for d/c and BMP in week
f/u PCP
-
-
Date of Service: February 19, 2024
CC / HPI / ROS
-
Chief Complaint:
KALLIE, hypoantremia
History of Present Illness:
sodium better at 130 cr down to 1.2
k normal
BP stable
Review of Systems:
no cp or sob
c/o LE edema-improving
Labs
-
Labs:
WBC 8.0 10^3/uL (4.8-10.8) 02/19/24 06:12
RBC 3.31 10^6/uL (4.20-5.40) L 02/19/24 06:12
Hgb 9.0 g/dL (12.0-16.0) L 02/19/24 06:12
Hct 27.4 % (37.0-47.0) L 02/19/24 06:12
Plt Count 191 10^3/uL (130-400) 02/19/24 06:12
Sodium 129 mmol/L (135-145) L 02/19/24 06:12
Potassium 4.8 mmol/L (3.5-5.1) 02/19/24 06:12
Chloride 91 mmol/L (98-107) L 02/19/24 06:12
Carbon Dioxide 28 mmol/L (22-30) 02/19/24 06:12
BUN 21 mg/dl (7-17) H 02/19/24 06:12
Creatinine 1.2 mg/dL (0.6-1.0) H 02/19/24 06:12
eGFR 49.00 02/19/24 06:12
Glucose 119 mg/dl (70-99) H 02/19/24 06:12
Calcium 8.5 mg/dl (8.4-10.2) 02/19/24 06:12
Neq-E-Fjwqsfqtdzn Pept 223 pg/ml 02/16/24 19:44
Albumin 4.4 g/dl (3.5-5.0) 02/16/24 19:44
Physical Exam
-
Vital Signs:
Vital Signs
Temp Pulse Resp BP Pulse Ox
98.1 F 77 18 131/73 96
02/19/24 07:00 02/19/24 07:00 02/19/24 07:00 02/19/24 07:00 02/19/24 07:00
Cardiovascular:: Regular rate and rhythm
Respiratory:: Bilateral: CTA (decreased)
Lung Excursion:: Normal
Abdomen:: Nontender and Soft
Extremity Edema:: +1: Bilateral:
Galindo Catheter: No
--- NOTE | 2024-02-19 13:56 | W.DS.TRANS ---
Addendum entered and electronically signed by Fabricio Valle MD 02/20/24 07:42:
Dictation- [id number]
Original Note:
DC Summary - [employer]ar [employer]
-
Discharge Instructions:
Discharge Diagnosis/Procedures Hyponatremia
Kidney disease
Hypertension
Diabetes
Gout
Anemia
Vit D Defeciency
Low normal B12
Grade 1 anterolisthesis L5 on S1 and L4 on L5
Fatty liver
Atherosclerosis
Diverticulosis
Diet 2 Gram Sodium,Diabetic, Carb Controlled
Activity As tolerated
Driving Restrictions As prior to admission
Blood Work CBC, BMP-in 1 week. Liver function tests and
CPK levels in 2 months if you start taking
statin
Instructions:
Stand-Alone Forms:
Changes to Home Medications: Yes
Discharge Medications:
DC Medications w/original date entered in [employer]
carvedilol 25 mg tablet 25 mg PO BID Blood Pressure 02/16/24
clonidine HCl 0.1 mg tablet 1 mg PO DAILYPRN PRN BP<155/90 02/16/24
metformin 500 mg tablet,extended release 24 hr 1,000 mg PO QPM Diabetes 02/16/24
ascorbic acid (vitamin C) 500 mg tablet (Vitamin C) 500 mg PO DAILY Supplement #0 tabs 02/19/24
aspirin 81 mg tablet,delayed release 81 mg PO DAILY Blood clot prevention/tx #30 tabs 02/19/24
atorvastatin 20 mg tablet 20 mg PO QPM atherosclerosis #30 tabs 02/19/24
cefuroxime axetil 500 mg tablet 500 mg PO BID dental 7 days #14 tabs 02/19/24
cholecalciferol (vitamin D3) 50 mcg (2,000 unit) tablet 50 mcg PO DAILY Supplement #0 tabs 02/19/24
cyanocobalamin (vitamin B-12) 1,000 mcg capsule 1,000 mcg PO DAILY low normal B12 #30 caps 02/19/24
furosemide 40 mg tablet 20 mg (1/2 x 40 mg) PO DAILY Fluid Retention/Swelling #0 tabs 02/19/24
gabapentin 100 mg capsule 100 mg PO BID facial pain #60 caps 02/19/24
magnesium oxide 500 mg PO DAILY Electrolyte Repletion #0 tabs 02/19/24
metronidazole 500 mg tablet 500 mg PO TID dental #21 tabs 02/19/24
Home Medication Changes
stopped Lisinopril HCTZ, colchicine, Carbamazepine
New Flagyl and Ceftin
lasix dose changed
mag , B12 , vit d new
Pending Results: No
[2024-02-19] MEDS: ASPIR LOW (ENTERIC COATED) 81 MG PO (14:20)
[2024-02-19] MEDS: CEFTIN 500 MG PO (14:20)
[2024-02-19 15:00] VITALS: BP 144/79
== END 2024-02-19 16:39 | disposition home or self-care (01) | DRG 683 ==
LOC: 1 ACUTE 02:34
PROVIDERS: Clinical Nurse Specialist Family Health; Emergency Medicine; Nurse Practitioner Family; ADMITTING PHYSICIAN Internal Medicine; ATTENDING PHYSICIAN Hospitalist; EMERGENCY PHYSICIAN Student in an Organized Health Care Education/Training Program; FAMILY PHYSICIAN Internal Medicine; OTHER PHYSICIAN Internal Medicine
DX: N17.9 Acute kidney failure, unspecified (principal); E87.1 Hypo-osmolality and hyponatremia; I13.0 Hypertensive heart and chronic kidney disease with heart failure and stage 1 through stage 4 chronic kidney disease, or unspecified chronic kidney disease; I65.29 Occlusion and stenosis of unspecified carotid artery; F17.200 Nicotine dependence, unspecified, uncomplicated; I50.9 Heart failure, unspecified; N18.9 Chronic kidney disease, unspecified; E11.22 Type 2 diabetes mellitus with diabetic chronic kidney disease; M10.9 Gout, unspecified
CPT/HCPCS: 70450; 71046; 74176; 76775; 80048; 80053; 80061; 81003; 82306; 82533; 82607; 82728; 82962; 83540; 83550; 83735; 83880; 83935; 84295; 84300; 84443; 84484; 85025; 85027; 85652; 86140; 93005; 93306; 93880; 93970; 96374; 97162; 99285